=== PATIENT | male | born 1985 | race Two or more races ===

== ENCOUNTER 2021-07-08 12:04 | Emergency (ER) | payer OTHER ==
[~2021-07-08] VITALS: Ht 172.7 cm; Wt 97.5 kg
[2021-07-08] MEDS ORDERED: SYNTHROID112 MCG PO (12:28)
== END 2021-07-08 15:56 | disposition home or self-care (01) ==
LOC: ER 12:04
DX: R10.2 Pelvic and perineal pain (principal); Z88.8 Allergy status to other drugs, medicaments and biological substances